=== PATIENT | female | born 1980 | race Caucasian/White ===

== ENCOUNTER 2017-05-13 09:18 | Inpatient (IN) | payer OTHER, SELFPAY ==
[2016-01-18 02:57] VITALS: BMI 35.4
[2017-05-13] MEDS ORDERED: Lidocaine 2% Inj (20ml) ONE (09:40)
[2017-05-13] MEDS ORDERED: Acetaminophen-Codeine 300/30 mg Tab PO PRN (10:01)
[2017-05-13] MEDS ORDERED: Lactated Ringer's 1,000 ML IV SCH (10:15)
[2017-05-13 10:25] LABS: BASO % 0.4 % (0.0-2.0); EOS # 0.1 K/uL (0.0-0.7); EOS % 0.4 % (0.0-4.0); LYMPH # 1.6 K/uL (1.0-4.3); LYMPH % 12.3 % (20.0-40.0); MEAN CELL VOLUME 85.6 fL (81.0-99.0); MEAN CORPUSCULAR HEMOGLOBIN 28.2 pg (27.0-31.0); MEAN CORPUSCULAR HGB CONC 32.9 g/dL (33.0-37.0); MONO # 0.6 K/uL (0.0-0.8); MONO % 4.6 % (0.0-10.0); NEUT # 10.7 K/uL (1.8-7.0); NEUT % 82.3 % (50.0-75.0); NRBC % 0.1 % (0.0-2.0); RBC 4.81 Mil/uL (3.80-5.20); RED CELL DISTRIBUTION WIDTH 14.8 % (11.5-14.5)
[2017-05-13 10:26] LABS: HEMOGLOBIN 13.6 g/dL (11.0-16.0)
--- NOTE | 2017-05-13 10:26 | OBHP ---
Datetime: 05/13/2017 10:09 IP Adm Impression: Term, intrauterine ; Active labor; Intact Membranes IP Chief Complaint Other: Passed mucous plug IP Admit Plan: Admit to unit; Initiate labor protocol Admit Comment, IP Provider: 36 y.o. , LMP unsure, SHONNA 05/11/17, EGA 05/11/2017, c/o contractions on set 0430 hours, and passed mucous plug 0500 hours. (+) AFM; denies LOF. care: [facility], denies issues. 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 Denies STIs PMH: denies PSH: denies NKDA Meds: PNV Soc Hx: denies tobacco, illicit drug or EtOH use. FOB not involved. Lives with her children Fam Hx: Mother alive 58 - no med issues. Father age 63 - complications of DM. No known fa m h/o cancer P.E.: as above. Obese in NAD. Awake, alert, oriented to time, person and place. Her mother presen t Patient became fully dilated and delivered within 15 minutes of arrival - see delivery report Assessment: 36 y.o. now P4. S/P vaginal delivery. Clinically stable. Plan: 1) Admit 2) Regular diet 3) Admission labs 4) Transfer to post when stable. Pelvic Type - PN: Adequate Extremities - PN: Normal Abdomen - PN: Normal Back - PN: Normal Breast - PN: Not Done Lungs - PN: Normal Heart - PN: Normal Thyroid - PN: Not Done Neurologic - PN: Normal HEENT - PN: Normal General - PN: Normal Presentation-Admit: Vertex FHR - Baseline A Provider: 140 Membranes, Provider: Intact Contraction Comments Provider: 2 Comments, ACOG Physical Exam: Abdomen: gravid; Firm with contractions; otherwse, soft. All systems reviewed and are negative Gestation - Est Wks by US: 41w 2d IP Hx Assessment: The History has been Reviewed and is Current EGA AdmitDate IP: 42.1 Vital Signs Provider: Reviewed; Within Normal Limits IP Indication for Induction: Not Applicable IP Chief Complaint: Uterine contractions NICHD Variability Prov Fetus A: Moderate 6-25bpm Dilatation, Provider: 10 Effacement, Provider: 100 Station, Provider: 0 Genitourinary Exam: Normal DTRs - PN: Not Done
--- NOTE | 2017-05-13 10:30 | OBDS ---
DELIVERY PERSONNEL Delivery Doctor: Dayami Downs MD Ingot Weigher: Cyn Salazar RN MATERNAL INFORMATION Delivery Anesthesia: Local Medications in Delivery: PITOCIN Estimated Blood Loss (ml): 250 Placenta Cultured: No Maternal Complications: None Provider Comments: Unremarkable vaginal delivery of live male, PADDY position, tight nuchal cor d x1; doubly clamped and cut. Weight 7lb 8oz; Apgars 9/9. Infant place on patient's abdomen. Spontan eous delivery of placenta: grossly intact, 3 vessel cord. Examination of cervix, vagina, perineum performed - laceration as above; repaired as above. and mother bonding - both in stable condition LABOR SUMMARY EDC: 04/28/2017 00:00 No. Babies in Womb: 1 Attempted: No Labor Anesthesia: None LABOR INFORMATION Reason for Induction: Not Applicable Onset of Labor: 05/13/2017 04:30 Complete Dilatation: 05/13/2017 09:28 Oxytocin: N/A Group B Beta Strep: Negative Steroids Given: None Reason Steroids Not Administered: Not Applicable MEMBRANES Membranes Rupture Method: Spontaneous Rupture of Membranes: 05/13/2017 09:30 Length of Rupture (hrs): 0.00 Amniotic Fluid Color: Clear Amniotic Fluid Amount: Small Amniotic Fluid Odor: Normal STAGES OF LABOR Stage 1 hrs: 4 Stage 1 min: 58 Stage 2 hrs: 0 Stage 2 min: 2 Stage 3 hrs: 0 Stage 3 min: 2 Total Time in Labor hrs: 5 Total Time in Labor min: 2 VAGINAL DELIVERY Episiotomy: None Laceration Extension: Second Degree Laceration Type: Perineal Laceration Repair: Yes Laceration Repair Note: 2-0 chromic in routine fashion. Hemostasis assured Patient tolereated procedure well Initial Vag Sponge Count: 10 Final Vag Sponge Count: 10 Initial Vag Sharps Count: 1 Final Vag Sharps Count: 1 Sponge Count Correct: Yes Sharps Count Correct: Yes Count Comment: Correct CSECTION DELIVERY Primary Indication: N/A Secondary Indication: N/A CSection Urgency: N/A CSection Incidence: N/A Labor: N/A Elective: N/A CSection Incision: N/A BABY A INFORMATION Delivery Date/Time: 05/13/2017 09:30 Method of Delivery: Vaginal Born in Route : No : N/A Forceps: N/A Vacuum Extraction: N/A Shoulder Dystocia : No SHOULDER DYSTOCIA BABY A Delivery Date/Time: 05/13/2017 09:30 PRESENTATION/POSITION BABY A Presentation: Cephalic Cephalic Presentation: Vertex Vertex Position: Left Occipital Anterior PLACENTA INFORMATION BABY A Placenta Delivery Time : 05/13/2017 09:32 Placenta Method of Delivery: Spontaneous Placenta Status: Delivered SCORES BABY A Heart Rate 1 min: >100 bpm Resp Effort 1 min: Good Cry Reflex Irritability 1 min: Cough or Sneeze or Pulls Away Muscle Tone 1 min: Active Motion Color 1 min: Body [place], Extremities Blue SCORE 1 MIN: 9 Heart Rate 5 min: >100 bpm Resp Effort 5 min: Good Cry Reflex Irritability 5 min: Cough or Sneeze or Pulls Away Muscle Tone 5 min: Active Motion Color 5 min: Body [place], Extremities Blue SCORE 5 MIN: 9 INFANT INFORMATION BABY A Gestational Age at Delivery: 40.0 Gestational Status: Term Infant Outcome : Liveborn Infant Condition : Stable Sex: Male IDENTIFICATION/MEDS BABY A ID Band Number: [id number] ID Band Location: Left Leg; Left Arm Sensor Applied: Yes Sensor Number: [id number] Sensor Location : Cord Clamp Vitamin K Given : Aquamephyton 1 mg IM Erythromycin Given: Given Both Eyes WEIGHT/LENGTH BABY A Birthweight (gms): 3400 Infant Weight (lb): 7 Infant Weight (oz): 8 Infant Length Inches: 19.00 Infant Length cms: 48.3 CORD INFORMATION BABY A No. Cord Vessels: 3 Nuchal Cord : N/A Nuchal Cord Other: N/A True Knot: 0 Cord Blood Taken: Yes Infant Suction: Mouth; Nose
[2017-05-13 10:33] LABS: ALBUMIN 3.5 g/dL (3.5-5.0)
[2017-05-13 10:36] LABS: ALB/GLOB RATIO 0.9 (1.0-2.1); AST/SGOT 32 U/L (14-36); GFR AFRICAN-AMERICAN > 60; GFR NON-AFRICAN AMERICAN > 60
[2017-05-13 10:37] LABS: ALT/SGPT 17 U/L (9-52); BLOOD UREA NITROGEN 8 mg/dL (7-17); CALCIUM 8.7 mg/dl (8.6-10.4)
[2017-05-13] MEDS: Benzocaine/Menthol 20%-0.5% Topical Spray (60 ml) TOP PRN (13:46)
[2017-05-14 07:26] LABS: HEMOGLOBIN 12.1 g/dL (11.0-16.0); MEAN CORPUSCULAR HEMOGLOBIN 28.2 pg (27.0-31.0); MEAN CORPUSCULAR HGB CONC 32.8 g/dL (33.0-37.0); MEAN PLATELET VOLUME 8.3 fL (7.2-11.7); RBC 4.29 Mil/uL (3.80-5.20); RED CELL DISTRIBUTION WIDTH 15.4 % (11.5-14.5); WHITE BLOOD COUNT 9.9 K/uL (4.8-10.8)
--- NOTE | 2017-05-14 07:27 | OBPPN ---
Datetime: 05/14/2017 07:23 PP Pain Prov: Within normal limits PP Nausea Prov: Denies PP Flatus Prov: Yes PP BM Prov: Yes PP Breasts Prov: Normal PP Heart Prov: Normal PP Lungs Prov: Normal PP Abdomen/Uterus Prov: Normal PP Lochia Prov: Normal PP Vulva/Perineum Prov: Normal PP CVA Tenderness Prov: Normal PP Extremities Prov: Normal PP C/S Incision Prov: Not Applicable PP Progress Prov: Normal PP Comments Phys Exam Prov: GEND NAD, AAO x3 BREAST: NON ENGORGLED, B/l RESP CTAB?l CVS RRR, +S2/S1 ABD: soft, NT/ ND FUNDUS: at level of umbilucs moderate lochia, non foul smelling EXT: no calf tenderness, negatiev terri's sign PP Impression Prov: Normal progression PP Plan Prov: Continue present management PP Progress Note Prov: Pt seen and examined reports pain controlled with medication, pt ambuating, v oiding, p[assing flatus, +BM, breast feeding, tolerating regular diet VSS P Esee above A/P s/p PPD #1 doing well -f/u AM labs -pian mangment -cont ambuatin -enocuarge breastk feeding IP PP Procedures: None Vital Signs Provider PP: Reviewed; Within Normal Limits
[2017-05-14] MEDS ORDERED: Multiple Vitamins Tab PO SCH (10:00)
[2017-05-14 16:47] VITALS: O2SAT 98
[2017-05-14] MEDS: Benzocaine/Menthol 20%-0.5% Topical Spray (60 ml) TOP PRN (20:21)
[2017-05-15 08:02] VITALS: BP 99/57; PULSE 65; RESP 99; TEMP 97.7
--- NOTE | 2017-05-15 10:57 | OBPPN ---
Datetime: 05/15/2017 10:51 PP Pain Prov: Within normal limits PP Nausea Prov: Denies PP Flatus Prov: Yes PP BM Prov: No PP Heart Prov: Normal PP Lungs Prov: Normal PP Abdomen/Uterus Prov: Normal PP Lochia Prov: Normal PP CVA Tenderness Prov: Normal PP Extremities Prov: Normal PP C/S Incision Prov: Not Applicable PP Progress Prov: Normal PP Impression Prov: Normal progression PP Plan Prov: Discharge PP Progress Note Prov: S-patient reports that her pain is well controlled.She denies nausea, vomitin g, headache, chest pain, shortness of breath, numbness or tingling in hands and feet O-VSS afebrile Fundus firm and below umbilicus Extremities no calf tenderness A/P Patient s/p vaginal delivery PPD 2 doing well -discharge today -follow up in clinic in 6 weeks Vital Signs Provider PP: Reviewed Datetime: 05/14/2017 07:23 PP Comments Phys Exam Prov: GEN: NAD, AAO x3 BREAST: NON ENGORGLED, B/l RESP CTAB/l CVS RRR, +S2/S1 ABD: soft, NT/ ND , +BS FUNDUS: at level of umbilucs moderate lochia, non foul smelling EXT: no calf tenderness, negative terri's sign
--- NOTE | 2017-05-15 11:01 | OBDCSUM ---
Datetime: 05/15/2017 10:43 Discharged to, Provider: Home Follow up at, Provider: [facility] Disch Instr Activity: Normal activity Disch Instr Diet: Regular Discharge Instructions, Provider: Routine instructions given Discharge Diagnosis, Provider: Postterm Discharge Time: 05/15/2017 11:00 Follow up in weeks, Provider: 6 weeks Disch Referrals: None Disch Activity Restrictions: Minimize walking; Minimize stair-climbing; No sexual activity; Nothing in vagina - [place], tampons, douche Discharge Comment, Provider: go to er if you have severe pain, heavy bleeding , fever , pain in calf muscels or any other problems Discharge Diagnosis Prov Other: s/p vaginal delivery
== END 2017-05-15 12:05 | disposition home or self-care (01) | DRG 373 ==
LOC: C.EROB 09:18 → C.4D 09:25 → C.4M 12:50
PROVIDERS: ADMIT Obstetrics & Gynecology; ATTEND Obstetrics & Gynecology
PROC: 10E0XZZ Delivery of Products of Conception, External Approach (ICD-10-PCS; principal; 2017-05-13)
PROC: 0KQM0ZZ Repair Perineum Muscle, Open Approach (ICD-10-PCS; 2017-05-13)
DX: O48.0 Post-term pregnancy (principal); O99.284 Endocrine, nutritional and metabolic diseases complicating childbirth; O69.1XX0 Labor and delivery complicated by cord around neck, with compression, not applicable or unspecified; O70.1 Second degree perineal laceration during delivery; Z3A.40 40 weeks gestation of pregnancy; Z37.0 Single live birth

== ENCOUNTER 2017-07-20 06:27 | Day surgery (SDC) | payer OTHER ==
[2017-07-20 07:08] VITALS: BP 120/77; PULSE 72; RESP 18; TEMP 97.9; O2SAT 99
[2017-07-20] MEDS ORDERED: cefOXitin IV 1 gm in Dextrose 0 GM/0 ML BAG IVPB ONE (07:35)
[2017-07-20] MEDS ORDERED: Midazolam 2 MG/2 ML VIAL ONE (07:36)
[2017-07-20] MEDS ORDERED: Propofol 10 mg/ml Inj (20 ML) ONE (07:36)
[2017-07-20] MEDS ORDERED: Bupivacaine HCl 0.25% PF (10 ml) Inj ONE (07:39)
[2017-07-20] MEDS ORDERED: Succinylcholine Chloride 20 mg/ml Syr (5 ml) IV ONE (08:05)
[2017-07-20] MEDS ORDERED: Phenylephrine 10 mg/ml Inj ONE (08:06)
[2017-07-20] MEDS ORDERED: ePHEDrine 50 mg/ml Inj ONE (08:06)
== END 2017-07-20 08:30 | disposition home or self-care (01) ==
LOC: C.SDS 06:27
PROVIDERS: ATTEND Obstetrics & Gynecology
DX: Z30.2 Encounter for sterilization (principal); Z53.9 Procedure and treatment not carried out, unspecified reason

== ENCOUNTER 2017-07-21 05:57 | Day surgery (SDC) | payer OTHER ==
[2017-07-21] MEDS ORDERED: Midazolam 2 MG/2 ML VIAL ONE (07:34)
[2017-07-21] MEDS ORDERED: Propofol 10 mg/ml Inj (20 ML) ONE (07:34)
[2017-07-21] MEDS ORDERED: Rocuronium 10 mg/ml (5 ml) ONE (07:35)
[2017-07-21] MEDS ORDERED: Lidocaine Hydrochloride 5 ML INJ ONE (07:38)
[2017-07-21] MEDS ORDERED: cefOXitin IV 1 gm in Dextrose 1 GM/50 ML BAG IVPB ONE (07:40)
[2017-07-21] MEDS ORDERED: Lactated Ringer's 1,000 ML IV ONE (07:40)
[2017-07-21] MEDS ORDERED: cefOXitin IV 2 gm in Dextrose 0 GM/0 ML BAG IVPB ONE (07:40)
[2017-07-21] MEDS ORDERED: Bupivacaine HCl 0.5% PF (10 ml) Inj ONE (08:11)
[2017-07-21] MEDS ORDERED: Neostigmine Methylsulfate 3mg/3ml Syringe IV ONE (08:45)
[2017-07-21] MEDS ORDERED: HYDROmorphone 0.5 mg/0.5 ml ISec IVP PRN (09:01)
--- NOTE | 2017-07-21 09:22 | PCM.SURG1 ---
Surgeon's Initial Post Op Note - Surgeon's Notes Surgeon: dr colmenares Dumper Mold Cleaner: dr lawrence Type of Anesthesia: General Endo Anesthesia Administered By: dr dodd Pre-Operative Diagnosis: 45 yr request permenent sterlisation Operative Findings: see the op reort Post-Operative Diagnosis: same Operation Performed: laproscopic b/l tubal ligation with ligasure Specimen/Specimens Removed: none Estimated Blood Loss: EBL {In ML}: 20 Blood Products Given: N/A Drains Used: No Drains Post-Op Condition: Good Date of Surgery/Procedure: 07/21/17 Time of Surgery/Procedure: 10:00
[2017-07-21 10:29] VITALS: RESP 16; O2SAT 97
[2017-07-21 14:29] VITALS: BP 105/59; PULSE 82; TEMP 97.7
--- NOTE | 2017-07-22 07:41 | OP ---
PROCEDURE DATE: 07/21/2017 PREOPERATIVE DIAGNOSIS: A 36-year-old 4, para 0, permanent sterilization, status post vaginal delivery. POSTOPERATIVE DIAGNOSIS: A 36-year-old 4, para 0, permanent sterilization, status post vaginal delivery. PROCEDURE PERFORMED: Laparoscopic bilateral tubal ligation with using coagulation. SURGEON: Dr. Saldana. SIXTH GRADE TEACHER SURGEON: Dr. Abrams, who was present throughout the surgery for helping with the tubal ligation. ANESTHESIA: General. ANESTHESIOLOGIST: Dr. Napoles. COMPLICATIONS: None. ESTIMATED BLOOD LOSS: 50 mL. DESCRIPTION OF PROCEDURE: After informed consent was obtained, the patient was brought to the operating room, placed on the table, where general anesthesia was given. Once the anesthesia was given, the patient was prepped and draped in the normal sterile fashion. Examination under anesthesia found uterus to be 8-week size, no pelvic or adnexal masses. After that, the anterior lip of the cervix was grasped with a tenaculum and HUMI catheter was inserted. When the tenaculum was placed, it was ripped, so a stitch was placed for hemostasis with 2-0 Vicryl, it was hemostatic. After that, Garcia catheter was inserted under sterile condition. Then, attention was turned towards the patient's abdomen. Then, 0.5% Marcaine was given at the center of the umbilicus and a Veress needle was placed. Two popping sounds were heard. After the needle was inserted, intraabdominal placement was confirmed with the saline drop sign. After that, the gas was entered as the belly was inserted. After that, the Veress needle was taken out. An incision was made with a knife and a 5 mm port was placed. After that, with the camera we went inside where the gas was inserted. A 5 mm port on the left side was placed after cutting with the knife and putting Marcaine. After that, the bowel was visualized, no tear, no lesions. After that, the uterus was visualized and both the tubes were visualized. After that, laparoscopic tubal ligation was done using LigaSure. The tube was exposed, fimbria was visualized, and it was cut and coagulated. It was cut and coagulated on both sides. After that, picture was taken. The bowel was visualized again. It was normal. Everything looked normal. Pictures were taken. After that, the gas was removed. The ports were removed. The 5 mm port was closed using 3-0 Monocryl in interrupted fashion and then Dermabond was placed. HUMI was removed and then the Garcia catheter was removed. It was hemostatic. No bleeding. The patient tolerated the procedure well. Lap, sponge, and instrument counts were correct x2. José Miguel Saldana MD
== END 2017-07-21 12:38 | disposition home or self-care (01) ==
LOC: C.SDS 05:57
PROVIDERS: ATTEND Obstetrics & Gynecology
DX: Z30.2 Encounter for sterilization (principal)
CPT/HCPCS: 58670; J0694; J1100; J1885; J2250; J2405; J2704; J2710; J3010; J7120